=== PATIENT | female | born 1985 | race Two or more races ===

== ENCOUNTER 2017-01-03 09:33 | Emergency (ER) | payer SELFPAY ==
[~2017-01-03] VITALS: Ht 162.6 cm; Wt 49.9 kg
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
[2017-01-03] MEDS ORDERED: LIDOCAINE HCL/PF 1% 30 ML SDV ONE (09:49)
[2017-01-03] MEDS ORDERED: ACETAMINOPHEN ES 500 MG TABLET ONE (09:57)
[2017-01-03] MEDS ORDERED: BACI/NEOM/POLY B OINT PKT 1 UDPKT PACKET TP ONE (10:00)
[2017-01-03] MEDS ORDERED: LIDOCAINE HCL/PF 1% 30 ML VIAL TP ONE (10:00)
[2017-01-03] MEDS ORDERED: ACETAMINOPHEN ES 500 MG TABLET PO ONE (10:00)
--- NOTE | 2017-01-03 10:05 | NUR ---
AT BEDSIDE FOR SUTURING.
--- NOTE | 2017-01-03 10:35 | NUR ---
Patient discharged to home in stable condition. Written and verbal after care instructions given. Patient verbalizes understanding of instruction.
[2017-01-03 10:40] VITALS: BP 124/74
== END 2017-01-03 10:40 | disposition home or self-care (01) ==
LOC: ER 09:36
DX: S61.213A Laceration without foreign body of left middle finger without damage to nail, initial encounter (principal); W26.0XXA Contact with knife, initial encounter; Y93.89 Activity, other specified; Y92.89 Other specified places as the place of occurrence of the external cause; Y99.8 Other external cause status
CPT/HCPCS: 12001; 99283; A4606; A6402; A6403; J3490 ×2; Z7610

== ENCOUNTER 2017-01-12 14:09 | Emergency (ER) | payer SELFPAY ==
[~2017-01-12] VITALS: Ht 162.6 cm; Wt 49.9 kg
[2017-01-12 14:12] VITALS: BP 106/60
--- NOTE | 2017-01-12 14:21 | NUR ---
4 STITCHES TAKEN OUT FROM PT'S FINGER. PT TOLERATED PROCEDURE
== END 2017-01-12 14:22 | disposition home or self-care (01) ==
LOC: ER 14:10
DX: S61.213D Laceration without foreign body of left middle finger without damage to nail, subsequent encounter (principal); Z48.02 Encounter for removal of sutures; W26.0XXD Contact with knife, subsequent encounter
CPT/HCPCS: 99281; A4606; Z7610; Z7502

== ENCOUNTER 2017-06-25 18:08 | Emergency (ER) | payer SELFPAY ==
[~2017-06-25] VITALS: Ht 162.6 cm; Wt 52.2 kg
--- NOTE | 2017-06-25 18:40 | NUR ---
SUDDEN ONSET R L Q ABD PAIN, WORSENING WITH MOVEMENT SINCE 1000, NAUSEA, DENIES VOMITING OR DIARRHEA. NAD NOTED, VSS, RESP EVEN AND UNLABORED, PT WAS PUT ON MONITOR, WAITING FOR MD MUELLER.
[2017-06-25] MEDS ORDERED: ONDANSETRON 4 MG TAB.RAPDIS SL ONE (19:30)
[2017-06-25] MEDS ORDERED: ONDANSETRON 4 MG TAB.RAPDIS ONE (19:34)
[2017-06-25 19:43] LABS: BASOPHILS % (AUTO) 0.7 % (0.0-2.0); EOSINOPHILS % (AUTO) 0.4 % (0.0-6.0); HEMATOCRIT 41 % (33-45); HEMOGLOBIN 14.2 g/dL (11.5-14.8); LYMPHOCYTES # (AUTO) 1.4 /CMM (0.8-4.8); LYMPHOCYTES % (AUTO) 20.2 % (20.0-44.0); MEAN CORPUSCULAR HGB CONC 35 g/dl (31.0-36.0); MEAN CORPUSCULAR VOLUME 94 fL (82-100); MONOCYTES # (AUTO) 0.5 /CMM (0.1-1.30); NEUTROPHILS % (AUTO) 71.7 % (43.0-81.0); PLATELET COUNT (AUTO) 216 /CMM (150-450); RED BLOOD CELL COUNT(AUTO) 4.35 MIL/uL (4.0-5.2); WHITE BLOOD COUNT (AUTO) 6.9 K/uL (4.3-11.0)
[2017-06-25 19:53] LABS: APPEARANCE,URINE Clear (CLEAR); BILIRUBIN,URINE Negative (NEGATIVE); BLOOD, URINE Trace-lysed Ery/uL (NEGATIVE); COLOR,URINE Yellow (YELLOW); KETONES,URINE 80 (NEGATIVE); LEUKOCYTE ESTERASE ,URINE Negative (NEGATIVE); NITRITE, URINE Negative (NEGATIVE); PH,URINE 5.5 (5.0-8.0); PROTEIN,URINE Trace mg/dl (NEGATIVE); UGLUCOSE Negative (NEGATIVE); UROBILINOGEN,URINE 0.2 EU/dL (0.2)
[2017-06-25 19:54] LABS: CALCIUM, SERUM 8.8 mg/dL (8.5-10.1); POTASSIUM 4.3 mmol/L (3.5-5.1)
[2017-06-25 19:55] LABS: BACTERIA,URINE Rare /HPF (None Seen); SQUAMOUS EPITHELIAL CELL,UR Few /HPF (None Seen); WBC,URINE 0-2 /HPF (0-3)
[2017-06-25 20:00] LABS: ALBUMIN 4.5 g/dL (3.4-5.0); BILIRUBIN,DIRECT 0.3 mg/dL (0.0-0.2); BILIRUBIN,TOTAL 1.8 mg/dL (0.2-1.0); TOTAL PROTEIN, SERUM 8.2 g/dL (6.4-8.2)
[2017-06-25] MEDS ORDERED: IV NS 0.9% 1,000 ML BAG IV ONE ×2 (21:00)
[2017-06-25 21:29] VITALS: BP 126/59
--- NOTE | 2017-06-25 21:29 | NUR ---
Patient discharged to home in stable condition. Written and verbal after care instructions given. Patient verbalizes understanding of instruction. Prescription given.
[2017-06-25 22:07] LABS: CREATINE KINASE MB 14.9 ng/mL (0-3.6)
== END 2017-06-25 21:31 | disposition home or self-care (01) ==
LOC: ER 18:10
DX: R10.31 Right lower quadrant pain (principal); R11.0 Nausea; E80.4 Gilbert syndrome; E86.0 Dehydration; R82.4 Acetonuria; R79.89 Other specified abnormal findings of blood chemistry
CPT/HCPCS: 36415; 80048-TC; 80076-TC; 81000-TC; 82550-TC; 82553-TC; 84703-TC; 85025-TC; A4606; Q0162; Z7610